=== PATIENT | female | born 1960 | race Caucasian/White ===

== ENCOUNTER 2023-07-03 16:54 | Inpatient (IN) | payer OTHER ==
[~2023-07-03] VITALS: Ht 162.6 cm; Wt 59.9 kg
[~2023-07-03 16:54] MED LIST: [UNRECOGNIZED DRUG - CODE] PO
[2023-07-03] MEDS ORDERED: MORPHINE SULFATE INJ 4 MG/ML DISP.SYRIN ONE (17:17)
[2023-07-03] MEDS ORDERED: MORPHINE SULFATE INJ 2 MG/ML DISP.SYRIN IV ONE (17:30)
[2023-07-03] MEDS ORDERED: ASCO100058 PO (18:37)
[2023-07-03] MEDS ORDERED: SEMA1PEN SQ (18:37)
[2023-07-03] MEDS ORDERED: AMLO5TAB4 PO (18:37)
[2023-07-03] MEDS ORDERED: LEVO150T8 PO (18:37)
[2023-07-03] MEDS ORDERED: TRAZ150T75 PO (18:37)
[2023-07-03] MEDS ORDERED: CYCL10TA9 PO (18:37)
[2023-07-03] MEDS ORDERED: ROSU5TAB PO (18:37)
[2023-07-03] MEDS ORDERED: PANT40TA49 PO (18:37)
[2023-07-03] MEDS ORDERED: CLON0.5T4 PO (18:37)
[2023-07-03] MEDS ORDERED: DIET75TA33 PO (18:37)
[2023-07-03] MEDS ORDERED: HYDR-3980 PO (18:37)
[2023-07-03] MEDS ORDERED: METF-881 PO (18:37)
[2023-07-03 19:18] LABS: BASOPHILS # (AUTO) 0.1 K/uL (0.0-0.2); BASOPHILS % (AUTO) 1.6 % (0.0-2.0); EOSINOPHILS # (AUTO) 0.1 K/uL (0.0-0.7); EOSINOPHILS % (AUTO) 1.5 % (0.0-6.0); HEMATOCRIT 39 % (33-45); HEMOGLOBIN 12.6 g/dL (11.5-14.8); LYMPHOCYTES # (AUTO) 1.3 K/uL (0.8-4.8); LYMPHOCYTES % (AUTO) 19.7 % (20.0-44.0); MEAN CORPUSCULAR HEMOGLOBIN 28 PG (26.0-33.0); MEAN CORPUSCULAR HGB CONC 33 g/dl (31.0-36.0); MEAN CORPUSCULAR VOLUME 86 fL (82-100); MONOCYTES # (AUTO) 0.3 K/uL (0.1-1.30); MONOCYTES % (AUTO) 4.5 % (2.0-12.0); NEUTROPHILS % (AUTO) 72.7 % (43.0-81.0); PLATELET COUNT (AUTO) 267 K/uL (150-450); RED BLOOD CELL COUNT(AUTO) 4.55 MIL/uL (4.0-5.2); RED CELL DISTRIBUTION WIDTH 13.6 % (11.5-15.0); WHITE BLOOD COUNT (AUTO) 6.8 K/uL (4.3-11.0)
[2023-07-03 19:25] LABS: CALCIUM, SERUM 9.2 mg/dL (8.5-10.1); CREATININE 0.6 mg/dL (0.6-1.3); POTASSIUM 3.7 mmol/L (3.5-5.1)
[2023-07-03 19:34] LABS: INR 1.04 (0.91-1.10); PARTIAL THROMBOPLASTIN TIME 26.3 SEC (24.3-34.3)
[2023-07-03] MEDS ORDERED: KETOROLAC TROMETHAMINE INJ 30 MG/ML VIAL ONE (20:26)
[2023-07-03] MEDS ORDERED: KETOROLAC TROMETHAMINE INJ 30 MG/ML VIAL IV ONE (20:30)
[2023-07-03 21:00] VITALS: BP 123/79; TEMP 98.2; O2SAT 97
[2023-07-03 21:11] VITALS: BP 123/79; TEMP 98.2; O2SAT 97
[2023-07-03] MEDS ORDERED: MORPHINE SULFATE INJ 4 MG/ML DISP.SYRIN IV ONE (21:30)
[2023-07-03] MEDS ORDERED: ONDANSETRON HCL/PF 4 MG/2 ML VIAL IVP PRN (23:00)
[2023-07-03] MEDS ORDERED: Z GUARD REMEDY 4 OZ OINT TP PRN (23:00)
[2023-07-03] MEDS ORDERED: clonazePAM 0.5 MG TABLET PO ONE (23:30)
[2023-07-03] MEDS ORDERED: TRAZODONE 50 MG TABLET PO SCH (23:30)
[2023-07-03] MEDS: ENOXAPARIN SODIUM 40 MG/0.4 ML DISP.SYRIN SQ SCH (23:45)
[2023-07-04] MEDS: ACETAMINOPHEN 325 MG TABLET PO PRN ×2 (03:30→19:50)
[2023-07-04 05:57] LABS: BASOPHILS % (AUTO) 0.3 % (0.0-2.0); EOSINOPHILS # (AUTO) 0.2 K/uL (0.0-0.7); EOSINOPHILS % (AUTO) 1.4 % (0.0-6.0); HEMATOCRIT 37 % (33-45); HEMOGLOBIN 12.3 g/dL (11.5-14.8); LYMPHOCYTES % (AUTO) 17.5 % (20.0-44.0); MEAN CORPUSCULAR HEMOGLOBIN 28 PG (26.0-33.0); MEAN CORPUSCULAR HGB CONC 33 g/dl (31.0-36.0); MEAN CORPUSCULAR VOLUME 84 fL (82-100); MONOCYTES # (AUTO) 0.8 K/uL (0.1-1.30); MONOCYTES % (AUTO) 6.6 % (2.0-12.0); NEUTROPHILS # (AUTO) 8.5 K/uL (1.8-8.9); NEUTROPHILS % (AUTO) 74.2 % (43.0-81.0); PLATELET COUNT (AUTO) 257 K/uL (150-450); RED BLOOD CELL COUNT(AUTO) 4.43 MIL/uL (4.0-5.2); RED CELL DISTRIBUTION WIDTH 13.6 % (11.5-15.0); WHITE BLOOD COUNT (AUTO) 11.4 K/uL (4.3-11.0)
[2023-07-04 06:39] LABS: CALCIUM, SERUM 9.7 mg/dL (8.5-10.1); CREATININE 0.7 mg/dL (0.6-1.3); PHOSPHORUS 4.4 mg/dL (2.5-4.9); POTASSIUM 3.7 mmol/L (3.5-5.1)
[2023-07-04] MEDS: LEVOTHYROXINE SODIUM 75 MCG TABLET PO SCH (07:43)
[2023-07-04] MEDS: MORPHINE SULFATE INJ 2 MG/ML DISP.SYRIN IV PRN (07:54)
[2023-07-04 08:00] VITALS: BP 129/85; TEMP 97.8; O2SAT 92
[2023-07-04] MEDS ORDERED: HYDROCODONE/APAP 5/325MG TABLET PO ONE (10:30)
[2023-07-04] MEDS ORDERED: CALCIUM CARBONATE 500 MG TAB.CHEW PO PRN (15:30)
[2023-07-04 16:00] VITALS: BP 129/71; TEMP 98.2; O2SAT 96
[2023-07-04] MEDS: PANTOPRAZOLE 40 MG TABLET.DR PO SCH (17:05)
[2023-07-04] MEDS: AMLODIPINE BESYLATE 5 MG TABLET PO SCH (17:05)
[2023-07-04] MEDS: DOCUSATE SODIUM 100 MG CAPSULE PO SCH (19:50)
[2023-07-04 20:00] VITALS: BP 130/86; TEMP 98.4; O2SAT 92; O2SAT 98
[2023-07-04] MEDS ORDERED: HYDROCODONE/APAP 10/325MG TABLET PO SCH (22:00)
[2023-07-04] MEDS ORDERED: clonazePAM 0.5 MG TABLET PO SCH (22:00)
[2023-07-04] MEDS ORDERED: CYCLOBENZAPRINE 10 MG TABLET PO SCH (22:00)
[2023-07-04] MEDS: TRAZODONE 50 MG TABLET PO SCH (22:40)
[2023-07-04] MEDS: METFORMIN XR 500 MG TAB.SR.24H PO SCH (22:41)
[2023-07-04] MEDS: ATORVASTATIN 40 MG TABLET PO SCH (22:41)
[2023-07-04] MEDS: ENOXAPARIN SODIUM 40 MG/0.4 ML DISP.SYRIN SQ SCH (23:16)
[2023-07-05 06:17] LABS: BASOPHILS # (AUTO) 0.1 K/uL (0.0-0.2); BASOPHILS % (AUTO) 0.7 % (0.0-2.0); EOSINOPHILS # (AUTO) 0.2 K/uL (0.0-0.7); EOSINOPHILS % (AUTO) 2.2 % (0.0-6.0); HEMATOCRIT 36 % (33-45); HEMOGLOBIN 12.2 g/dL (11.5-14.8); LYMPHOCYTES # (AUTO) 2.2 K/uL (0.8-4.8); LYMPHOCYTES % (AUTO) 27.7 % (20.0-44.0); MEAN CORPUSCULAR HEMOGLOBIN 28 PG (26.0-33.0); MEAN CORPUSCULAR HGB CONC 34 g/dl (31.0-36.0); MEAN CORPUSCULAR VOLUME 84 fL (82-100); MONOCYTES # (AUTO) 0.5 K/uL (0.1-1.30); MONOCYTES % (AUTO) 6.1 % (2.0-12.0); NEUTROPHILS # (AUTO) 5.1 K/uL (1.8-8.9); NEUTROPHILS % (AUTO) 63.3 % (43.0-81.0); PLATELET COUNT (AUTO) 259 K/uL (150-450); RED BLOOD CELL COUNT(AUTO) 4.31 MIL/uL (4.0-5.2); RED CELL DISTRIBUTION WIDTH 13.7 % (11.5-15.0); WHITE BLOOD COUNT (AUTO) 8.1 K/uL (4.3-11.0)
[2023-07-05 06:48] LABS: CALCIUM, SERUM 10.1 mg/dL (8.5-10.1); CREATININE 0.5 mg/dL (0.6-1.3); PHOSPHORUS 4.6 mg/dL (2.5-4.9); POTASSIUM 3.6 mmol/L (3.5-5.1)
[2023-07-05] MEDS: LEVOTHYROXINE SODIUM 75 MCG TABLET PO SCH (07:30)
[2023-07-05 08:00] VITALS: BP 127/84; TEMP 98.6; O2SAT 95
[2023-07-05] MEDS: DOCUSATE SODIUM 100 MG CAPSULE PO SCH ×2 (09:00→17:00)
[2023-07-05] MEDS: MORPHINE SULFATE INJ 2 MG/ML DISP.SYRIN IV PRN (11:01)
[2023-07-05] MEDS ORDERED: BUPIVACAINE 0.25% 75 MG/30 ML VIAL ONE (12:46)
[2023-07-05] MEDS ORDERED: POLYMYXIN B SULFATE 0 UNITS ONE (12:46)
[2023-07-05] MEDS ORDERED: HYDROGEN PEROXIDE 480 ML BOTTLE ONE (15:45)
[2023-07-05] MEDS ORDERED: ROPIVACAINE HCL 0.5% 5 MG/ML 30ML VIAL ONE ×2 (15:49→16:02)
[2023-07-05 16:00] VITALS: BP 148/61; TEMP 97.6; O2SAT 99
[2023-07-05] MEDS ORDERED: MIDAZOLAM HCL 2 MG/2ML VIAL ONE (16:18)
[2023-07-05] MEDS ORDERED: FENTANYL PF 100MCG/2ML AMPUL ONE (16:18)
[2023-07-05] MEDS ORDERED: MEPERIDINE25 MG SYR 25 MG/ML VIAL ONE (16:19)
[2023-07-05] MEDS ORDERED: ONDANSETRON HCL/PF 4 MG/2 ML VIAL ONE (16:50)
[2023-07-05] MEDS ORDERED: DOCUSATE SODIUM 100 MG CAPSULE PO PRN (17:30)
[2023-07-05] MEDS ORDERED: DOCUSATE SODIUM 250 MG CAPSULE PO PRN (17:30)
[2023-07-05] MEDS ORDERED: SENNOSIDES 8.6 MG TABLET PO PRN ×2 (17:30)
[2023-07-05] MEDS ORDERED: MORPHINE SULFATE INJ 4 MG/ML DISP.SYRIN IV PRN (17:30)
[2023-07-05] MEDS ORDERED: HYDROCODONE/APAP 5/325MG TABLET PO PRN (17:30)
[2023-07-05] MEDS ORDERED: BISACODYL SUPP (10 MG) 10 MG/SUPP.RECT SUPP.RECT RC PRN (17:30)
[2023-07-05] MEDS: HYDROCODONE/APAP 5/325MG TABLET PO PRN ×2 (17:46→23:45)
[2023-07-05] MEDS ORDERED: CYCLOBENZAPRINE 10 MG TABLET PO PRN (18:00)
[2023-07-05] MEDS ORDERED: MORPHINE SULFATE INJ 2 MG/ML DISP.SYRIN IV PRN (18:00)
[2023-07-05] MEDS ORDERED: HYDROCODONE/APAP 10/325MG TABLET PO PRN (18:00)
[2023-07-05] MEDS ORDERED: clonazePAM 0.5 MG TABLET PO PRN (18:00)
[2023-07-05] MEDS ORDERED: ENOXAPARIN SODIUM 40 MG/0.4 ML DISP.SYRIN SQ SCH (18:00)
[2023-07-05] MEDS: PANTOPRAZOLE 40 MG TABLET.DR PO SCH (18:11)
[2023-07-05] MEDS: AMLODIPINE BESYLATE 5 MG TABLET PO SCH (18:11)
[2023-07-05 20:00] VITALS: BP 150/90; TEMP 97.9; O2SAT 97
[2023-07-05 20:03] VITALS: BP 150/90; TEMP 97.9; O2SAT 97
[2023-07-05] MEDS: ANCEF 1 GM/50 ML D5W IV SCH ×2 (21:30)
[2023-07-05] MEDS: ATORVASTATIN 40 MG TABLET PO SCH (21:31)
[2023-07-05] MEDS: METFORMIN XR 500 MG TAB.SR.24H PO SCH (21:31)
[2023-07-05] MEDS: TRAZODONE 50 MG TABLET PO SCH (21:33)
[2023-07-05] MEDS: ENOXAPARIN SODIUM 40 MG/0.4 ML DISP.SYRIN SQ SCH (23:51)
[2023-07-06] MEDS: MORPHINE SULFATE INJ 2 MG/ML DISP.SYRIN IV PRN ×2 (03:12→08:27)
[2023-07-06] MEDS: HYDROCODONE/APAP 5/325MG TABLET PO PRN ×2 (05:48→10:04)
[2023-07-06] MEDS: ANCEF 1 GM/50 ML D5W IV SCH ×2 (05:50)
[2023-07-06 05:53] LABS: BASOPHILS % (AUTO) 0.3 % (0.0-2.0); EOSINOPHILS % (AUTO) 0.1 % (0.0-6.0); HEMATOCRIT 35 % (33-45); HEMOGLOBIN 11.3 g/dL (11.5-14.8); LYMPHOCYTES # (AUTO) 1.4 K/uL (0.8-4.8); LYMPHOCYTES % (AUTO) 11.6 % (20.0-44.0); MEAN CORPUSCULAR HEMOGLOBIN 28 PG (26.0-33.0); MEAN CORPUSCULAR HGB CONC 32 g/dl (31.0-36.0); MEAN CORPUSCULAR VOLUME 86 fL (82-100); MONOCYTES # (AUTO) 0.9 K/uL (0.1-1.30); MONOCYTES % (AUTO) 7.5 % (2.0-12.0); NEUTROPHILS # (AUTO) 9.6 K/uL (1.8-8.9); NEUTROPHILS % (AUTO) 80.5 % (43.0-81.0); PLATELET COUNT (AUTO) 231 K/uL (150-450); RED BLOOD CELL COUNT(AUTO) 4.09 MIL/uL (4.0-5.2); RED CELL DISTRIBUTION WIDTH 13.7 % (11.5-15.0); WHITE BLOOD COUNT (AUTO) 11.9 K/uL (4.3-11.0)
[2023-07-06 06:14] LABS: CALCIUM, SERUM 8.6 mg/dL (8.5-10.1); CREATININE 0.6 mg/dL (0.6-1.3); MAGNESIUM 1.6 mg/dL (1.8-2.4); PHOSPHORUS 3.6 mg/dL (2.5-4.9); POTASSIUM 3.6 mmol/L (3.5-5.1)
[2023-07-06] MEDS: LEVOTHYROXINE SODIUM 75 MCG TABLET PO SCH (07:36)
[2023-07-06 08:21] VITALS: BP 128/77; TEMP 99; O2SAT 95
[2023-07-06] MEDS: DOCUSATE SODIUM 100 MG CAPSULE PO SCH ×2 (08:26→16:34)
[2023-07-06] MEDS ORDERED: MAGNESIUM OXIDE 400 MG TABLET PO ONE (10:00)
[2023-07-06] MEDS ORDERED: BISACODYL (5 MG) 5 MG TABLET.DR PO ONE (10:00)
[2023-07-06] MEDS: HYDROCODONE/APAP 10/325MG TABLET PO PRN ×3 (14:00→22:35)
[2023-07-06 16:00] VITALS: BP 148/84; TEMP 99.7; O2SAT 97
[2023-07-06] MEDS: AMLODIPINE BESYLATE 5 MG TABLET PO SCH (17:08)
[2023-07-06] MEDS: PANTOPRAZOLE 40 MG TABLET.DR PO SCH (17:08)
[2023-07-06] MEDS ORDERED: HYDROMORPHONE INJ 2 MG/ML DISP.SYRIN IV PRN (17:30)
[2023-07-06 20:00] VITALS: BP 148/91; TEMP 98.1; TEMP 98.2; O2SAT 95
[2023-07-06] MEDS: ATORVASTATIN 40 MG TABLET PO SCH (22:30)
[2023-07-06] MEDS: METFORMIN XR 500 MG TAB.SR.24H PO SCH (22:30)
[2023-07-06] MEDS: TRAZODONE 50 MG TABLET PO SCH (22:31)
[2023-07-06] MEDS: ENOXAPARIN SODIUM 40 MG/0.4 ML DISP.SYRIN SQ SCH (23:46)
[2023-07-07] MEDS: HYDROCODONE/APAP 10/325MG TABLET PO PRN ×6 (06:39→22:31)
[2023-07-07 08:00] VITALS: BP 100/66; TEMP 98.1; O2SAT 99
[2023-07-07] MEDS: DOCUSATE SODIUM 100 MG CAPSULE PO SCH ×2 (08:56→17:07)
[2023-07-07] MEDS: LEVOTHYROXINE SODIUM 75 MCG TABLET PO SCH (08:56)
[2023-07-07] MEDS ORDERED: BISACODYL SUPP (10 MG) 10 MG/SUPP.RECT SUPP.RECT RC PRN (11:00)
[2023-07-07] MEDS ORDERED: MAGNESIUM HYDROXIDE 30 ML UDC PO ONE (11:00)
[2023-07-07] MEDS ORDERED: HYDROMORPHONE INJ 2 MG/ML DISP.SYRIN IV PRN (13:30)
[2023-07-07 16:00] VITALS: BP 105/69; TEMP 99.1; O2SAT 99
[2023-07-07] MEDS: AMLODIPINE BESYLATE 5 MG TABLET PO SCH (17:08)
[2023-07-07] MEDS: PANTOPRAZOLE 40 MG TABLET.DR PO SCH (17:08)
[2023-07-07 20:00] VITALS: BP 110/72; TEMP 98.2; O2SAT 98
[2023-07-07] MEDS: ATORVASTATIN 40 MG TABLET PO SCH (21:41)
[2023-07-07] MEDS: METFORMIN XR 500 MG TAB.SR.24H PO SCH (21:41)
[2023-07-07] MEDS: TRAZODONE 50 MG TABLET PO SCH (21:42)
[2023-07-07] MEDS ORDERED: POLYETHYLENE GLYCOL 3350 17 GM POWD.PACK PO SCH (22:00)
[2023-07-07] MEDS: ENOXAPARIN SODIUM 40 MG/0.4 ML DISP.SYRIN SQ SCH (22:33)
[2023-07-08] MEDS: HYDROCODONE/APAP 10/325MG TABLET PO PRN ×3 (02:45→13:51)
[2023-07-08] MEDS: LEVOTHYROXINE SODIUM 75 MCG TABLET PO SCH (07:27)
[2023-07-08] MEDS: DOCUSATE SODIUM 100 MG CAPSULE PO SCH (08:07)
[2023-07-08 09:06] VITALS: BP 119/80; TEMP 98.8; O2SAT 94
[2023-07-08] MEDS ORDERED: ACET325T53 PO (11:48)
[2023-07-08] MEDS ORDERED: DOCU100C36 PO (11:48)
[2023-07-08] MEDS ORDERED: HYDR-3980 PO (11:48)
[2023-07-08] MEDS ORDERED: CYCL10TA9 PO (11:48)
[2023-07-08] MEDS ORDERED: SENN-175 PO (11:48)
[2023-07-08] MEDS ORDERED: POLY17PO29 PO (11:48)
[2023-07-08] MEDS ORDERED: CALC500T63 PO (11:48)
[2023-07-08] MEDS ORDERED: EMPA10TA PO (16:05)
== END 2023-07-08 15:55 | disposition home health service (06) | DRG 494 ==
LOC: ER 17:07 → MED 20:20
PROVIDERS: ADMIT Nurse Practitioner Acute Care; ATTEND Nurse Practitioner Acute Care
PROC: 0PSF06Z Reposition Right Humeral Shaft with Intramedullary Internal Fixation Device, Open Approach (ICD-10-PCS; principal; 2023-07-05)
DX: S42.351A Displaced comminuted fracture of shaft of humerus, right arm, initial encounter for closed fracture (principal); W01.0XXA Fall on same level from slipping, tripping and stumbling without subsequent striking against object, initial encounter; R73.03 Prediabetes; K21.9 Gastro-esophageal reflux disease without esophagitis; I10 Essential (primary) hypertension; E78.5 Hyperlipidemia, unspecified; G89.4 Chronic pain syndrome; Y92.009 Unspecified place in unspecified non-institutional (private) residence as the place of occurrence of the external cause; E03.9 Hypothyroidism, unspecified; F41.9 Anxiety disorder, unspecified; Z79.84 Long term (current) use of oral hypoglycemic drugs; M19.90 Unspecified osteoarthritis, unspecified site
CPT/HCPCS: 36415; 71045-TC; 71111-TC; 73030-TC; 73060-TC; 73090-TC; 73200-TC; 73521; 80048-TC; 83735-TC; 84100-TC; 85025-TC; 85610-TC; 85730-TC; 86850-TC; 93307-TC; 93930-TC; 93971-TC; 97110-TC; 97112-TC; 97116-TC; 97530-TC; 97535-TC; A4223; G0378; J0330; J0461; J0690; J1170; J1650; J1885; J2175; J2250; J2270; J2405; J2704; J2795; J3010; J3490; J7050; J7060

== ENCOUNTER 2023-08-13 03:11 | Inpatient (IN) | payer OTHER ==
[~2023-08-13] VITALS: Ht 170.2 cm; Wt 57.6 kg
[~2023-08-13 03:11] MED LIST changes: +ACET325T53 PO; +AMLO5TAB4 PO; +ASCO100058 PO; +CALC500T63 PO; +CLON0.5T4 PO; +CYCL10TA9 PO; +DIET75TA33 PO; +DOCU100C36 PO; +EMPA10TA PO; +HYDR-3980 PO; +LEVO150T8 PO; +METF-881 PO; +PANT40TA49 PO; +POLY17PO29 PO; +ROSU5TAB PO; +SEMA1PEN SQ; +SENN-175 PO; +TRAZ150T75 PO; -[UNRECOGNIZED DRUG - CODE] PO
[2023-08-13 04:08] VITALS: O2SAT 99
[2023-08-13] MEDS ORDERED: MORPHINE SULFATE INJ 2 MG/ML DISP.SYRIN ONE ×2 (04:30→05:15)
[2023-08-13] MEDS: MORPHINE SULFATE INJ 2 MG/ML DISP.SYRIN IV ONE ×2 (05:02→05:19)
[2023-08-13 05:18] LABS: EOSINOPHILS # (AUTO) 0.2 K/uL (0.0-0.7)
[2023-08-13 05:23] LABS: CALCIUM, SERUM 9.7 mg/dL (8.5-10.1); CREATININE 0.8 mg/dL (0.6-1.3); POTASSIUM 3.2 mmol/L (3.5-5.1)
[2023-08-13 05:24] LABS: BASOPHILS % (AUTO) 0.6 % (0.0-2.0); EOSINOPHILS % (AUTO) 3.1 % (0.0-6.0); HEMATOCRIT 35 % (33-45); HEMOGLOBIN 11.3 g/dL (11.5-14.8); LYMPHOCYTES # (AUTO) 2.7 K/uL (0.8-4.8); LYMPHOCYTES % (AUTO) 37.1 % (20.0-44.0); MEAN CORPUSCULAR HEMOGLOBIN 28 PG (26.0-33.0); MEAN CORPUSCULAR HGB CONC 33 g/dl (31.0-36.0); MEAN CORPUSCULAR VOLUME 84 fL (82-100); MONOCYTES # (AUTO) 0.5 K/uL (0.1-1.30); MONOCYTES % (AUTO) 6.6 % (2.0-12.0); NEUTROPHILS # (AUTO) 3.8 K/uL (1.8-8.9); NEUTROPHILS % (AUTO) 52.6 % (43.0-81.0); PLATELET COUNT (AUTO) 332 K/uL (150-450); RED BLOOD CELL COUNT(AUTO) 4.12 MIL/uL (4.0-5.2); RED CELL DISTRIBUTION WIDTH 13.8 % (11.5-15.0); WHITE BLOOD COUNT (AUTO) 7.2 K/uL (4.3-11.0)
[2023-08-13 05:29] LABS: ALBUMIN 3.8 g/dL (3.4-5.0); BILIRUBIN,TOTAL 0.3 mg/dL (0.2-1.0)
[2023-08-13 05:30] LABS: INR 1.12 (0.91-1.10); PARTIAL THROMBOPLASTIN TIME 26.8 SEC (24.3-34.3); PROTHROMBIN TIME 11.8 SECS (9.2-11.1)
[2023-08-13 08:00] VITALS: BP 120/71; TEMP 97.5; O2SAT 99
[2023-08-13] MEDS ORDERED: CALCIUM CARBONATE 500 MG TAB.CHEW PO PRN (08:00)
[2023-08-13] MEDS ORDERED: SENNOSIDES 8.6 MG TABLET PO PRN (08:00)
[2023-08-13] MEDS ORDERED: MORPHINE SULFATE INJ 2 MG/ML DISP.SYRIN IV PRN (08:30)
[2023-08-13] MEDS ORDERED: MAGNESIUM HYDROXIDE 30 ML UDC PO PRN (08:30)
[2023-08-13] MEDS ORDERED: INSULIN REGULAR, HUMAN 100 UNIT/ML 3 ML VIAL SQ PRN (08:30)
[2023-08-13] MEDS ORDERED: ZOLPIDEM TARTRATE 5 MG TABLET PO PRN (08:30)
[2023-08-13] MEDS ORDERED: ACETAMINOPHEN 325 MG TABLET PO PRN (08:30)
[2023-08-13] MEDS ORDERED: DEXTROSE 50%-WATER 50 ML DISP.SYRIN IV PRN (08:30)
[2023-08-13] MEDS ORDERED: ONDANSETRON HCL/PF 4 MG/2 ML VIAL IVP PRN (08:30)
[2023-08-13] MEDS ORDERED: HYDROCODONE/APAP 5/325MG TABLET PO PRN (08:30)
[2023-08-13] MEDS ORDERED: MAG HYDROX/AL HYDROX/SIMETH 30 ML UDC PO PRN (08:30)
[2023-08-13] MEDS ORDERED: Z GUARD REMEDY 4 OZ OINT TP PRN (08:30)
[2023-08-13] MEDS: PANTOPRAZOLE 40 MG VIAL IV SCH (09:00)
[2023-08-13] MEDS: DOCUSATE SODIUM 100 MG CAPSULE PO SCH ×2 (09:00→17:24)
[2023-08-13] MEDS: LEVOTHYROXINE SODIUM 50 MCG TABLET PO SCH (09:00)
[2023-08-13] MEDS ORDERED: BUPIVACAINE 0.25% 75 MG/30 ML VIAL ONE ×2 (10:20→10:30)
[2023-08-13] MEDS: POTASSIUM CL. PREMIX PERIPHER. 50 ML IV SCH ×4 (11:25→18:18)
[2023-08-13] MEDS ORDERED: MIDAZOLAM HCL 2 MG/2ML VIAL ONE ×2 (12:26→13:33)
[2023-08-13] MEDS ORDERED: FAMOTIDINE/PF INJ 20 MG/2 ML VIAL IV ONE (12:26)
[2023-08-13] MEDS ORDERED: FENTANYL PF 100MCG/2ML AMPUL ONE (12:26)
[2023-08-13] MEDS: BLOOD SUGAR DIAGNOSTIC 1 EACH STRIP IN SCH ×3 (13:15→23:16)
[2023-08-13 13:27] LABS: THYROID STIMULATING HORMONE < 0.007 uIU/mL (0.358-3.74)
[2023-08-13] MEDS ORDERED: AMLODIPINE BESYLATE 5 MG TABLET PO SCH (18:00)
[2023-08-13 20:00] VITALS: BP 141/77; TEMP 97.7; O2SAT 98
[2023-08-13] MEDS ORDERED: clonazePAM 0.5 MG TABLET PO SCH (22:00)
[2023-08-13] MEDS ORDERED: TRAZODONE 50 MG TABLET PO SCH (22:00)
[2023-08-13] MEDS ORDERED: ATORVASTATIN 10 MG TABLET PO SCH (22:00)
[2023-08-14 05:47] LABS: BASOPHILS % (AUTO) 0.4 % (0.0-2.0); EOSINOPHILS # (AUTO) 0.1 K/uL (0.0-0.7); EOSINOPHILS % (AUTO) 0.9 % (0.0-6.0); HEMATOCRIT 36 % (33-45); HEMOGLOBIN 11.6 g/dL (11.5-14.8); LYMPHOCYTES % (AUTO) 28.8 % (20.0-44.0); MEAN CORPUSCULAR HEMOGLOBIN 28 PG (26.0-33.0); MEAN CORPUSCULAR HGB CONC 33 g/dl (31.0-36.0); MEAN CORPUSCULAR VOLUME 86 fL (82-100); MONOCYTES # (AUTO) 0.5 K/uL (0.1-1.30); MONOCYTES % (AUTO) 6.7 % (2.0-12.0); NEUTROPHILS # (AUTO) 4.5 K/uL (1.8-8.9); NEUTROPHILS % (AUTO) 63.2 % (43.0-81.0); PLATELET COUNT (AUTO) 312 K/uL (150-450); RED BLOOD CELL COUNT(AUTO) 4.19 MIL/uL (4.0-5.2); WHITE BLOOD COUNT (AUTO) 7.1 K/uL (4.3-11.0)
[2023-08-14 05:55] LABS: CALCIUM, SERUM 9.5 mg/dL (8.5-10.1); CREATININE 0.6 mg/dL (0.6-1.3); MAGNESIUM 2.2 mg/dL (1.8-2.4); PHOSPHORUS 4.4 mg/dL (2.5-4.9); POTASSIUM 3.6 mmol/L (3.5-5.1)
[2023-08-14] MEDS: BLOOD SUGAR DIAGNOSTIC 1 EACH STRIP IN SCH ×2 (06:56→12:00)
[2023-08-14 07:00] VITALS: BP 105/71; TEMP 97.9; O2SAT 99
[2023-08-14] MEDS: LEVOTHYROXINE SODIUM 50 MCG TABLET PO SCH (07:35)
[2023-08-14] MEDS: PANTOPRAZOLE 40 MG VIAL IV SCH (08:17)
[2023-08-14] MEDS: DOCUSATE SODIUM 100 MG CAPSULE PO SCH (08:17)
[2023-08-14] MEDS ORDERED: HYDR-3980 PO (10:59)
[2023-08-15] MEDS ORDERED: PANTOPRAZOLE 40 MG TABLET.DR PO SCH (09:00)
== END 2023-08-14 12:15 | disposition home or self-care (01) | DRG 497 ==
LOC: ER 03:12 → MED 08:50
PROVIDERS: ADMIT Nurse Practitioner Acute Care; ATTEND Nurse Practitioner Acute Care
PROC: 0PP Upper Bones, Removal (ICD-10-PCS; principal; 2023-08-13)
DX: T84.84XA Pain due to internal orthopedic prosthetic devices, implants and grafts, initial encounter (principal); T84.190A Other mechanical complication of internal fixation device of right humerus, initial encounter; I10 Essential (primary) hypertension; K21.9 Gastro-esophageal reflux disease without esophagitis; E87.6 Hypokalemia; E78.5 Hyperlipidemia, unspecified; Y83.8 Other surgical procedures as the cause of abnormal reaction of the patient, or of later complication, without mention of misadventure at the time of the procedure; Y92.009 Unspecified place in unspecified non-institutional (private) residence as the place of occurrence of the external cause; E11.9 Type 2 diabetes mellitus without complications; Z79.84 Long term (current) use of oral hypoglycemic drugs; E03.9 Hypothyroidism, unspecified; M81.0 Age-related osteoporosis without current pathological fracture
CPT/HCPCS: 36415; 73030-TC; 80048-TC; 80053-TC; 82962-TC; 83735-TC; 84100-TC; 84439-TC; 84443-TC; 85025-TC; 85730-TC; 86850-TC; 97110-TC; 97112-TC; 97116-TC; 97530-TC; A4223; A6402; C9113; G0378; J0690; J1815; J2250; J2270; J2405; J2704; J2765; J3010; J3480; J3490; J7030; J7040